=== PATIENT | male | born 1980 | race Caucasian/White ===

== ENCOUNTER 2017-12-24 22:34 | Emergency (ER) | payer SELFPAY ==
[~2017-12-24] VITALS: Ht 185.4 cm; Wt 65.8 kg
--- NOTE | 2017-12-25 00:12 | ED Back Pain ---
General Chief Complaint: Back Problems Stated Complaint: AB PAIN Nursing Triage Note: Pt c/o R flank pain and swelling to bilat groin area x 1 week. Pt reports he has been moving recently and this he may have injured himself. Nursing Sepsis Screen: No Definite Risk Source of Information: Patient, Spouse Exam Limitations: No Limitations History of Present Illness Date Seen by Provider: Dec 25, 2017 Time Seen by Provider: 23:50 Initial Comments Patient just recently moved here from [place] and presents to ER by private conveyance with chief complaint that for the past couple days since moving he's been having some pain in his right groin more than left but both groins have a bulge visible. He is not having any redness, swelling, drainage, dysuria, nausea , fevers, chills or history of abdominal or groin surgeries. Does not ever been told he had a hernia. His pain is worse when he stands up or moves around. He says bulges or more visible when he standing up. Allergies and Home Medications Allergies Coded Allergies: bupropion (Unverified Allergy, Unknown, 12/24/17) Patient Home Medication List Home Medication List Reviewed: Yes Constitutional: No chills, No diaphoresis EENTM: No hearing loss, No eye pain Respiratory: No cough, No short of breath Cardiovascular: No chest pain, No edema Gastrointestinal: see HPI; No constipation, No diarrhea, No nausea, No vomiting Genitourinary: No decreased output, No discharge, No dysuria, No frequency, No hematuria Musculoskeletal: No back pain, No joint pain Skin: No pruritus, No rash Past Ymlitcz-Jncslw-Olzjuo Hx Patient Social History Alcohol Use: Denies Use Recreational Drug Use: Yes Drug of Choice: past hx marijuana Smoking Status: Current Everyday Smoker Type Used: Cigarettes Recent Foreign Travel: No Contact w/Someone Who Travel: No Recent Infectious Disease Expo: No Recent Hopitalizations: No Seasonal Allergies Seasonal Allergies: No Past Medical History Surgeries: Yes Orthopedic Respiratory: No Cardiac: No Neurological: No Genitourinary: No Gastrointestinal: No Musculoskeletal: No Endocrine: No HEENT: No Cancer: No Psychosocial: No Integumentary: No Blood Disorders: No Physical Exam Vital Signs Vital Signs - First Documented 12/24/17 22:41 Temp 97.8 Pulse 56 Resp 18 B/P (MAP) 116/77 (90) Pulse Ox 100 O2 Delivery Room Air Capillary Refill : Less Than 3 Seconds General Appearance: No Apparent Distress, Thin Cardiovascular: Regular Rate, Rhythm, Normal Peripheral Pulses Respiratory: No Accessory Muscle Use, No Respiratory Distress Gastrointestinal: Normal Bowel Sounds, Non Tender, Soft Genital/Rectal: Other (bilateral inguinal canals have palpable hernias that are visible just on standing without Valsalva maneuver as well as palpable in the inguinal canal. Easily reducible.) Extremity: Normal Capillary Refill, No Calf Tenderness Neurologic/Psychiatric: Alert, Oriented x3 Skin: Normal Color, Warm/Dry Progress/Results/Core Measures Results/Orders Vital Signs/I&O 12/24/17 12/25/17 22:41 00:15 Temp 97.8 97.8 Pulse 56 56 Resp 18 18 B/P (MAP) 116/77 (90) 116/77 (90) Pulse Ox 100 100 O2 Delivery Room Air Blood Pressure Mean: 90 Departure Impression Primary Impression: Inguinal hernia bilateral, non-recurrent Qualified Codes: K40.20 - Bilateral inguinal hernia, without obstruction or gangrene, not specified as recurrent Disposition: 01 HOME, SELF-CARE Condition: Stable Departure-Patient Inst. Decision time for Depature: 00:10 Referrals: NO,LOCAL PHYSICIAN (PCP) Primary Care Physician EUSEBIO RAMIRES MD Patient Instructions: Groin Hernia (DC) Add. Discharge Instructions: Don't lift more than 10 pounds until you meet with the surgeon. This morning called the surgeon's office Dr. Ramires and request an appointment for consultation and possible repair of your bilateral inguinal hernias. Use proper body mechanics as demonstrated. All discharge instructions reviewed with patient and/or family. Voiced understanding. Copy Copies To 1: EUSEBIO RAMIRES MD, TITUS J Dec 25, 2017 00:11
[2017-12-25 00:15] VITALS: BP 116/77
== END 2017-12-25 00:15 | disposition home or self-care (01) ==
LOC: ER 22:37
DX: K40.20 Bilateral inguinal hernia, without obstruction or gangrene, not specified as recurrent (principal); F17.210 Nicotine dependence, cigarettes, uncomplicated; Z88.8 Allergy status to other drugs, medicaments and biological substances
CPT/HCPCS: 99281

== ENCOUNTER 2018-08-19 01:17 | Emergency (ER) | payer SELFPAY ==
[~2018-08-19] VITALS: Ht 185.4 cm; Wt 70.3 kg
--- NOTE | 2018-08-19 02:35 | ED EENT ---
History of Present Illness General Chief Complaint: Dental Problems/Pain Stated Complaint: DENTAL PAIN Nursing Triage Note: Pt arrived by private vehicle with significant other. [facility]. Pt stated broken for 1-2 months; from [place] and has been to [facility] several times for issue; pt stated lower/right/posterior. Pt stated he has been taking ibuprofren and oralgel and it is not helping. Pt stated that he thinks there is an infection, sensitivity, headache and whole side of head/face hurts he stated. Source: patient Exam Limitations: no limitations (FAREED EVANS STUDENT) History of Present Illness Date Seen by Provider: Aug 19, 2018 Time Seen by Provider: 02:20 Initial Comments 37 y/o M presented for tooth pain of the back lower molar on the left that has worsened in severity over the past few days. He noted that it has been broken for a few months but he has been controlling the pain with ibuprofen successfully until a few days ago. He has started having worsening sensitivity and pain that radiates up into his head, causing headaches. He has noted some pus in the mornings on a Q-tip when he applies oragel on the molar. He denies fever, chills, sweating. He is having difficulty eating due to pain and sensitivity to drinking cold/hot liquids. Timing/Duration: gradual Severity: severe Location: dental (bottom molar on the left) Prearrival Treatment: over the counter meds (ibuprofen) Associated Symptoms: No cough, No facial pain/swelling, No fever, No malaise, No nasal congestion/drainage; poor fluid intake, poor solids intake; No sinus infection, No sore throat; tooth pain (FAREED EVANS STUDENT) Timing/Duration: gradual, other (several days) Severity: moderate Location: dental (bottom molar on the left) Prearrival Treatment: over the counter meds (ibuprofen) Associated Symptoms: No cough, No drooling, No fever, No sore throat; tooth pain; No voice change (SANDY BAILEY MD) Allergies and Home Medications Allergies Coded Allergies: bupropion (Unverified Allergy, Unknown, 12/24/17) Patient Home Medication List Home Medication List Reviewed: Yes (FAREED EVANS STUDENT) Home Medication List Reviewed: Yes (SANDY BAILEY MD) Review of Systems Review of Systems Constitutional: No chills, No diaphoresis, No fever, No malaise Eyes: Denies Blurred Vision, Denies Pain, Denies Vision Changes Ears: Denies Dizziness, Denies Pain, Denies Tinnitus Nose: denies congestion, denies pain Mouth: denies loose teeth; pain (radiating into jaw and up into head); denies swelling; purulent discharge (on Q-tip in mornings) Throat: denies pain, denies swelling, denies painful swallowing Respiratory: No cough, No phlegm, No short of breath, No wheezing Cardiovascular: No chest pain, No edema, No palpitations Gastrointestinal: No abdominal pain, No diarrhea, No nausea, No vomiting Musculoskeletal: No back pain, No muscle pain, No muscle stiffness Skin: No lesions, No lumps, No rash Neurological: Headache; Denies Numbness, Denies Tremors, Denies Weakness (FAREED DELCID) Constitutional: see HPI Ears: No Symptoms Reported Nose: no symptoms reported Mouth: see HPI, pain (radiating into jaw and up into head); denies swelling Throat: denies neck stiffness, denies hoarse, denies aphonia, denies muffled Respiratory: no symptoms reported; No cough, No short of breath Cardiovascular: no symptoms reported (SANDY BAILEY MD) Past Wilbgzu-Afcohf-Cigoog Hx Past Med/Social Hx: Reviewed Nursing Past Med/Soc Hx (SANDY BAILEY MD) Patient Social History Alcohol Use: Denies Use Recreational Drug Use: No Drug of Choice: past hx marijuana Smoking Status: Current Everyday Smoker Type Used: Cigarettes 2nd Hand Smoke Exposure: No Recent Foreign Travel: No Contact w/Someone Who Travel: No Recent Infectious Disease Expo: No Recent Hopitalizations: No Physical Abuse: No Sexual Abuse: No Mistreated: No Fear: No (FAREED EVANS STUDENT) Seasonal Allergies Seasonal Allergies: No (FAREED EVANS) Past Medical History Surgeries: Yes (left foot bone repair; right hand tendon repair) Orthopedic Respiratory: No Cardiac: No Neurological: No Genitourinary: No Gastrointestinal: No Musculoskeletal: Yes (left foot bone repair; right hand tendon repair) Endocrine: No HEENT: No Cancer: No Psychosocial: No Integumentary: No Blood Disorders: No (NATHANFAREED Lenny STUDENT) Family Medical History Reviewed Nursing Family Hx (FAREED EVANS STUDENT) Reviewed Nursing Family Hx (SANDY BAILEY MD) No Pertinent Family Hx (FAREED EVANS STUDENT) Physical Exam Vital Signs Vital Signs - First Documented 08/19/18 01:34 Temp 97.9 Pulse 56 Resp 18 B/P (MAP) 114/69 (84) Pulse Ox 98 O2 Delivery Room Air (SANDY BAILEY MD) Height, Weight, BMI Height: 6'1.00" Weight: 155lbs. 0oz. 70.474430im; BMI Method:Stated General Appearance: WD/WN, mild distress Eyes: bilateral eye normal inspection, bilateral eye PERRL Ears: bilateral ear auricle normal, bilateral ear canal normal, bilateral ear TM normal Nose: normal inspection; No sinus tenderness Mouth/Throat: pharynx normal, dental tenderness; No foreign body, No mandibular swelling, No maxillary swelling; other (broken posterior molar on the left) Neck: non-tender, full range of motion, supple, normal inspection, lymphadenopathy (R) (NTAHANFAREED Lenny STUDENT) General Appearance: WD/WN, mild distress Mouth/Throat: pharynx normal, dental tenderness (right lower posterior near number 32) Cardiovascular: regular rate, rhythm, no murmur Respiratory: lungs clear, normal breath sounds Neurologic/Psychiatric: alert, oriented x 3 Skin: normal color, warm/dry (SANDY BAILEY MD) Progress/Results/Core Measures Results/Orders My Orders Orders - SANDY BAILEY MD Amoxicillin 1000mg Po (08/19/18 03:04) Hydrocodone/Apap 7.5/325 Tab (Lortab 7. (08/19/18 03:04) (SANDY BAILEY MD) Vital Signs/I&O 08/19/18 01:34 Temp 97.9 Pulse 56 Resp 18 B/P (MAP) 114/69 (84) Pulse Ox 98 O2 Delivery Room Air (SANDY BAILEY MD) Blood Pressure Mean: 84 Progress Progress Note : Progress Note I have seen and evaluated the patient and agree with above except as indicated. Have directed the plan of care. Patient is here with dental tenderness to the area a number 32. Does have moderate dental carry with mild tenderness to the gums without obvious abscess. Amoxicillin 1000 mg by mouth and hydrocodone 7.5/325 one tab by mouth given. Discharged home with return precautions. Patient verbalize understanding instructions and agreement with plan. (SANDY BAILEY MD) Departure Impression Primary Impression: Dental caries Disposition: HOME, SELF-CARE Condition: Stable Departure-Patient Inst. Decision time for Depature: 03:09 (SANDY BAILEY MD) Referrals: [facility] (PCP/Family) Primary Care Physician Patient Instructions: Tooth Decay, Adult (DC), Tooth Abscess (DC) Add. Discharge Instructions: All discharge instructions reviewed with patient and/or family. Voiced understanding. You may take ibuprofen 800 mg every 8 hours as needed for pain. You may take Tylenol/acetaminophen 1000 mg every 8 hours as needed for pain. Follow-up with a dentist CARLA. Take other medications as directed. You should continue to brush her teeth and you may rinse her mouth with salt water 2 or 3 times daily as discussed. Return for worse pain, swelling, breathing or swallowing problems or other concerns as needed. Scripts Amoxicillin (Amoxicillin) 500 Mg Capsule 500 MG PO TID, #30 CAP 0 Refills Prov: SADNY BAILEY MD 08/19/18 Images Mouth/Nose 1 - Caries, Tenderness (SANDY BAILEY MD) FAREED EVANS STUDENT Aug 19, 2018 02:35 SANDY BAILEY MD Aug 19, 2018 03:11
[2018-08-19] MEDS ORDERED: HYDROcodone/APAP 7.5 MG/325 MG (LORTAB, LORCET PLUS) TABLET PO STA (03:04)
[2018-08-19] MEDS ORDERED: AMOXICILLIN 500 MG (POLYMOX) CAP PO STA (03:04)
[2018-08-19] MEDS ORDERED: AMOX500C2 PO (03:11)
[2018-08-19 03:14] VITALS: BP 119/66
== END 2018-08-19 03:14 | disposition home or self-care (01) ==
LOC: EDUNIT# 01:17 → ER 01:21
DX: K02.9 Dental caries, unspecified (principal); F17.210 Nicotine dependence, cigarettes, uncomplicated; Z88.8 Allergy status to other drugs, medicaments and biological substances; Z98.890 Other specified postprocedural states
CPT/HCPCS: 99283

== ENCOUNTER 2019-12-08 20:49 | Emergency (ER) | payer SELFPAY ==
[~2019-12-08] VITALS: Ht 185.4 cm; Wt 74.8 kg
[~2019-12-08 20:49] MED LIST: AMOX500C2 PO
--- OUTSIDE RECORDS SUMMARY | 2019-12-08 20:54 | XMS REPORT | Continuity of Care Document ---
Author Organization Unknown Address Unknown Phone Unavailable Allergies Active Description Code Type Severity Reaction Onset Reported/Identified Relationship to Patient Clinical Status Yes bupropion [id number] Drug Allergy Unknown N/A 12/24/2017 Medications There is no data. Problems Date Dx Coded Attending Type Code Diagnosis Diagnosed By 12/25/2017 KEKE MCPHERSON MD Ot F17.210 NICOTINE DEPENDENCE, CIGARETTES, UNCOMPL 12/25/2017 KEKE MCPHERSON MD Ot K40. 20 BI INGUINAL HERNIA, W/O OBST OR GANGRENE 12/25/2017 KEKE MCPHERSON MD Ot R10. 31 RIGHT LOWER QUADRANT PAIN 12/25/2017 KEKE MCPHERSON MD Ot Z88. 8 ALLERGY STATUS TO OTH DRUG/MEDS/BIOL SUB 12/26/2017 KEKE MCPHERSON MD Ot F17.210 NICOTINE DEPENDENCE, CIGARETTES, UNCOMPL 12/26/2017 KEKE MCPHERSON MD Ot K40. 20 BI INGUINAL HERNIA, W/O OBST OR GANGRENE 12/26/2017 KEKE MCPHERSON MD Ot R10. 31 RIGHT LOWER QUADRANT PAIN 12/26/2017 KEKE MCPHERSON MD Ot Z88. 8 ALLERGY STATUS TO OTH DRUG/MEDS/BIOL SUB 08/21/2018 SANDY BAILEY MD Ot F17.210 NICOTINE DEPENDENCE, CIGARETTES, UNCOMPL 08/21/2018 SANDY BAILEY MD Ot K02.9 DENTAL CARIES, UNSPECIFIED 08/21/2018 SANDY BAILEY MD Ot K08.89 OTHER SPECIFIED DISORDERS OF TEETH AND S 08/21/2018 SANDY BAILEY MD Ot Z88.8 ALLERGY STATUS TO OTH DRUG/MEDS/BIOL SUB 08/21/2018 SANDY BAILEY MD Ot Z98.890 OTHER SPECIFIED POSTPROCEDURAL STATES Procedures There is no data. Results There is no data. Encounters ACCT No. Visit Date/Time Discharge Status Pt. Type Provider Facility Loc./Unit Complaint [id number] 08/19/2018 01:21:00 019 03:14:00 DIS Outpatient LEO RILEY, SANDY Arreola [facility] DENTAL PAIN [id number] 12/24/2017 22:37:00 018 00:15:00 DIS Emergency VIDA RILEY, KEKE Sheppard [facility] AB PAIN
[2019-12-08 21:04] VITALS: BP 123/75
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
[2019-12-08] MEDS ORDERED: RX-HYDROCODONE/APAP 5/325 MG #4 TAB PK PO PRN (21:45)
== END 2019-12-08 21:45 | disposition home or self-care (01) ==
LOC: EDUNIT# 20:49 → ER 20:50
DX: S20.212A Contusion of left front wall of thorax, initial encounter (principal); Z88.8 Allergy status to other drugs, medicaments and biological substances; V19.9XXA Pedal cyclist (driver) (passenger) injured in unspecified traffic accident, initial encounter
CPT/HCPCS: 71101

== ENCOUNTER 2020-07-08 13:09 | Emergency (ER) | payer BC ==
[~2020-07-08] VITALS: Ht 185.5 cm; Wt 72.6 kg
[2020-07-08 13:18] VITALS: BP 132/81
--- NOTE | 2020-07-08 13:34 | ED Upper Extremity ---
General Chief Complaint: Upper Extremity Stated Complaint: R ELBOW PAIN Nursing Triage Note: PT AMB TO TRIAGE WITH COMPLAINT OF RIGHT ELBOW PAIN. STATES SLIPPED ON ICE TWO WEEKS AGO, LANDING ON ELBOW. STATES WHENEVER HE PLACES PRESSURE ON ELBOW, HE FEELS A TEARING PAIN. AFTER BEING PLACED IN ROOM, PT ASKED IF HE COULD CHECK ON HIS FRIEND, WHO ALSO CHECKED INTO ER AT SAME TIME. Nursing Sepsis Screen: No Definite Risk Source: patient Exam Limitations: no limitations History of Present Illness Date Seen by Provider: Jul 08, 2020 Time Seen by Provider: 13:28 Initial Comments This is a well-appearing 39-year-old male who presents to the ER with complaints of right elbow pain 2 weeks. States he fell and slipped on ice in the parking lot at his house and landed directly on his right elbow. He is able to move independently and this does not cause pain, however, whenever he puts pressure on his elbow, it causes significant pain. Sitting up in bed at this time he has no pain. States he is repeatedly asked at work to do things that require him to move his arm and he is concerned this has prolonged healing of his injury. Has taken ibuprofen which is provided mild relief. No medications taken today. Allergies and Home Medications Allergies Coded Allergies: bupropion (Unverified Allergy, Unknown, 12/24/17) Home Medications Amoxicillin 500 Mg Capsule, 500 MG PO TID Prescribed by: SANDY BAILEY on 08/19/181 Patient Home Medication List Home Medication List Reviewed: Yes Review of Systems Constitutional: no symptoms reported EENTM: no symptoms reported Respiratory: no symptoms reported Cardiovascular: no symptoms reported Gastrointestinal: no symptoms reported Genitourinary: no symptoms reported Musculoskeletal: see HPI Skin: no symptoms reported Psychiatric/Neurological: No Symptoms Reported Past Owjztfx-Iebdkq-Tszaso Hx Patient Social History Alcohol Use: Denies Use Recreational Drug Use: No Drug of Choice: past hx marijuana Smoking Status: Current Everyday Smoker Type Used: Cigarettes 2nd Hand Smoke Exposure: No Recent Foreign Travel: No Contact w/Someone Who Travel: No Recent Infectious Disease Expo: No Recent Hopitalizations: No Immunizations Up To Date Tetanus Booster (TDap): Unknown PED Vaccines UTD: Yes Seasonal Allergies Seasonal Allergies: No Past Medical History Surgeries: Yes (left foot bone repair; right hand tendon repair) Orthopedic Respiratory: No Cardiac: No Neurological: No Genitourinary: No Gastrointestinal: No Musculoskeletal: Yes (left foot bone repair; right hand tendon repair) Endocrine: No HEENT: No Cancer: No Psychosocial: No Integumentary: No Blood Disorders: No Family Medical History No Pertinent Family Hx Physical Exam Vital Signs Vital Signs - First Documented 07/08/20 13:18 Temp 36.5 Pulse 85 Resp 20 B/P (MAP) 132/81 (98) Pulse Ox 99 O2 Delivery Room Air Capillary Refill : Less Than 3 Seconds Height, Weight, BMI Height: 6'1.00" Weight: 155lbs. 0oz. [id number]; 21.00 BMI Method:Stated General Appearance: WD/WN, no apparent distress HEENT: PERRL/EOMI, normal ENT inspection Neck: full range of motion, normal inspection Cardiovascular: regular rate, rhythm, no murmur Respiratory: lungs clear, normal breath sounds, no respiratory distress Shoulder: normal inspection, non-tender, no evidence of injury Elbow/Forearm: normal inspection, non-tender (to touch ), no evidence of injury, normal ROM, Right, pain Wrist: Yes normal inspection, Yes non-tender, Yes no evidence of injury Hand: normal inspection, non-tender, no evidence of injury, normal ROM, swelling (, equal full-strength bilaterally) Neurologic/Tendon: normal sensation, normal motor functions, normal tendon functions, responds to pain Neurologic/Psychiatric: no motor/sensory deficits, alert, normal mood/affect, oriented x 3 Skin: normal color, warm/dry Progress/Results/Core Measures Results/Orders My Orders Orders - KIRSTIE PLASCENCIA APRN Elbow, Right, 3 Views (07/08/20 13:28) Vital Signs/I&O Blood Pressure Mean: 98 Progress Progress Note : Progress Note His exam is unremarkable and he likely has a contusion of his right elbow. However, will obtain images due to persistent pain. Throughout history and exam, he repeatedly asked for a work note because his job requires him to move his arm too much. Also, he continually flexed and extended his arm stating "this doesn't hurt, but when I put pressure on it like this (demonstrated getting up from bed by elbow), it hurts really bad". Stated he would like to have a week off work to allow for healing. Discussed that we need to identify the problem first, before we can discuss treatment. Discussed findings of x-ray which shows no acute fractures. Requested he get a work note for today so he didn't have to work this evening. Discussed that no injuries preventing work was seen and he could be provided with a work note that shows he was in the ER this morning. He became upset stating "how my supposed to go to work? They expect me to climb up ladders and stuff". Discussed that he appears to be moving his arm just fine without difficulty and he reports pain only when he puts pressure on his elbow. Became upset stating "you are not listening to me". Discussed discharge plan of care and instructed him to follow-up with his primary care provider if his symptoms are persisting. Diagnostic Imaging Diagonstic Imaging: Xray Plain Films/CT/US/NM/MRI: elbow Comments NAME: ANGEL CLINTON MED REC#: [id number] PT STATUS: DEP ER : 1980 PHYSICIAN: KIRSTIE PLASCENCIA SITE COORDINATOR ADMIT DATE: 07/08/20/ER Signed Date of Exam:07/08/20 ELBOW, RIGHT, 3 VIEWS INDICATION: Fall, complaining of right elbow pain. TIME OF EXAM: 2:01 PM. FINDINGS: Three views of the right elbow were obtained. The alignment is normal. The joint spaces are well-maintained. No fracture, dislocation, or effusion is identified. IMPRESSION: No acute bony abnormality is detected. Dictated by: Dictated on workstation # [id number] Dict: 07/08/20 1422 Trans: 07/08/20 1546 [id number] Interpreted by: JENNIFER CISNEROS MD Electronically signed by: JENNIFER CISNEROS MD 07/08/20 1546 Departure Impression Primary Impression: Contusion of elbow Disposition: 01 HOME, SELF-CARE Condition: Stable/Unchanged Departure-Patient Inst. Decision time for Depature: 10:30 Referrals: [facility] (PCP/Family) Primary Care Physician Patient Instructions: Contusion (DC) Add. Discharge Instructions: Plan: 1. Discharge home. 2. Rest, ice 20 minutes at a time every couple of hours for swelling and pain, use angie wrap over the next 3 days, and keep elevated above your heart as much as possible. T 3. May take Tylenol or Ibuprofen as needed for pain per package directions. Do not take more than directed. 4. Follow up with your primary care provider if symtpoms persist. All discharge instructions reviewed with patient and/or family. Voiced understanding. KIRSTIE PLASCENCIA SITE COORDINATOR Jul 08, 2020 13:34
--- NOTE | 2020-07-08 14:23 | Diagnostic Imaging Report ---
INDICATION: Fall, complaining of right elbow pain. TIME OF EXAM: 2:01 PM. FINDINGS: Three views of the right elbow were obtained. The alignment is normal. The joint spaces are well-maintained. No fracture, dislocation, or effusion is identified. IMPRESSION: No acute bony abnormality is detected. Dictated by: Dictated on workstation # [id number]
== END 2020-07-08 14:43 | disposition home or self-care (01) ==
LOC: EDUNIT# 13:09 → ER 13:11
DX: S50.01XA Contusion of right elbow, initial encounter (principal); F17.210 Nicotine dependence, cigarettes, uncomplicated; Z88.8 Allergy status to other drugs, medicaments and biological substances; W01.0XXA Fall on same level from slipping, tripping and stumbling without subsequent striking against object, initial encounter
CPT/HCPCS: 73080

== ENCOUNTER → 2020-09-29 | Emergency (ER) | payer BC | LOC: EDUNIT# 08:34 → ER 08:36 | DX: R43.0 Anosmia (principal); R50.9 Fever, unspecified ==

== ENCOUNTER 2020-10-10 09:34 | Emergency (ER) | payer OTHER, BC ==
[~2020-10-10] VITALS: Ht 182.8 cm; Wt 75.0 kg
[2020-10-10 10:47] VITALS: BP 116/93
== END 2020-10-10 10:47 | disposition left against medical advice (07) ==
LOC: EDUNIT# 09:34 → ER 09:36
DX: M54.9 Dorsalgia, unspecified (principal)
CPT/HCPCS: 99281

== ENCOUNTER → 2020-10-15 | Outpatient (REF) ==
--- NOTE | 2020-10-15 09:37 | Diagnostic Imaging Report ---
INDICATION: Back pain EXAM: Thoracic spine FINDINGS: AP and lateral views of the thoracic spine show normal vertebral body height and alignment. Disc spaces are normal. IMPRESSION: Negative thoracic spine Dictated by: Dictated on workstation # [id number]
== END ==
LOC: OCC 09:06
PROVIDERS: ATTEND Family Medicine
DX: M54.9 Dorsalgia, unspecified (principal)
CPT/HCPCS: 72072

== ENCOUNTER 2021-03-14 17:17 | Emergency (ER) | payer BC ==
[~2021-03-14] VITALS: Ht 185 cm; Wt 77.0 kg
--- OUTSIDE RECORDS SUMMARY | 2021-03-14 17:23 | XMS REPORT | Clinical Summary ---
Author Author [facility] Organization [facility] Address Unknown Phone Unavailable Care Team Providers Care Cartography Professor Name Role Phone None, Pcp MD PCP Unavailable Source Comments [facility] ([facility]) documents [facility] appear [facility] Allergies Not on File Medications Please verify current medications with patient. Not on file Active Problems Not on file Social History Date Tobacco Use Types Packs/Day Years Used Never Assessed Sex Assigned at Date Recorded Not on file Last Filed Vital Signs Not on file Plan of Treatment Health Maintenance Due Date Last Done Comments COVID-19 Vaccine (1) 1994 Influenza Vaccine (#1) 2021 HPV Vaccine Aged Out No longer eligible based on patient's age to complete this topic Pneumococcal Vaccine: Aged Out No longer eligib le based on patient's age to Pediatrics (0 to 5 Years) complete this topic and At-Risk Patients (6 to 64 Years) Results Not on filefrom Last 3 Months Advance Directives 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
[2021-03-14 17:52] VITALS: BP 127/87
--- NOTE | 2021-03-14 17:59 | ED Integumentary General ---
General Chief Complaint: Skin/Wound Problems Stated Complaint: BRUISING/RASH ON BOTH ARMS Source: patient Exam Limitations: no limitations (BRITANY HIGHTOWER APRN) History of Present Illness Date Seen by Provider: Mar 14, 2021 Time Seen by Provider: 17:54 Initial Comments To ER with a singular bruise about nickel sized to the medial aspect of the right upper arm for a few days with a lump beneath it. Does not recall any injury. He also had a rash to both upper extremities from the elbows to the shoulders but it is gone now. He has no other symptoms. He was concerned he may have a blood clot. He donates blood quite frequently and has never had any issues with low platelets or low hemoglobin. Timing/Duration: just prior to arrival Severity: moderate Associated Symptoms: denies symptoms (BRITANY HIGHTOWER APRN) Allergies and Home Medications Allergies Coded Allergies: bupropion (Unverified Allergy, Unknown, 12/24/17) Patient Home Medication List Home Medication List Reviewed: Yes (BRITANY HIGHTOWER APRN) Amoxicillin (Amoxicillin) 500 Mg Capsule, 500 MG PO TID Prescribed by: SANDY BAILEY on 08/19/18 0311 Review of Systems Review of Systems Constitutional: see HPI EENTM: see HPI Respiratory: no symptoms reported Cardiovascular: no symptoms reported Genitourinary: no symptoms reported Musculoskeletal: no symptoms reported Skin: see HPI Psychiatric/Neurological: No Symptoms Reported Endocrine: No Symptoms Reported (BRITANY HIGHTOWER APRN) Past Btijuio-Urnkgn-Tkyqbw Hx Patient Social History Tobacco Use?: Yes Tobacco type used: Cigarettes Smoking Status: Current Everyday Smoker Use of E-Cig and/or Vaping dev: No Substance use?: No Alcohol Use?: Yes Alcohol Frequency: Rarely Pt feels they are or have been: No (BRITANY HIGHTOWER APRN) Immunizations Up To Date Tetanus Booster (TDap): Unknown PED Vaccines UTD: Yes (BRITANY HIGHTOWER APRN) Seasonal Allergies Seasonal Allergies: No (BRITANY HIGHTOWER APRN) Past Medical History Surgery/Hospitalization HX: PT DENIES ANY PMH Surgeries: Yes (left foot bone repair; right hand tendon repair) Orthopedic Respiratory: No Cardiac: No Neurological: No Genitourinary: No Gastrointestinal: No Musculoskeletal: Yes (left foot bone repair; right hand tendon repair) Endocrine: No HEENT: No Cancer: No Psychosocial: No Integumentary: No Blood Disorders: No (BRITANY HIGHTOWER APRN) Family Medical History No Pertinent Family Hx (BRITANY HIGHTOWER APRN) Physical Exam Vital Signs Vital Signs - First Documented 03/14/21 17:52 Temp 36.8 Pulse 82 Resp 18 B/P (MAP) 127/87 (100) Pulse Ox 96 O2 Delivery Room Air (JOVANY CARROLL MD) Vital Signs Capillary Refill : (BRITANY HIGHTOWER APRN) General Appearance: WD/WN, no apparent distress HEENT: PERRL/EOMI Neck: non-tender, full range of motion Respiratory: no respiratory distress, no accessory muscle use Neurologic/Psychiatric: alert, normal mood/affect, oriented x 3 Skin: normal color, warm/dry Skin Problem Character: other (There is a single bruise about nickel sized to the medial aspect of the right upper arm, small palpable hematoma/nodule (half of a pea size) within the center of this. No surrounding erythema or swelling. He was concerned of DVT though there is absolutely no appearance of this. Nor is there a rash.) (BRITANY HIGHTOWER APRN) Progress/Results/Core Measures Results/Orders Vital Signs/I&O 03/14/21 17:52 Temp 36.8 Pulse 82 Resp 18 B/P (MAP) 127/87 (100) Pulse Ox 96 O2 Delivery Room Air (JOVANY CARROLL MD) Departure Impression Primary Impression: Superficial bruising of arm Additional Impression: small hematoa of arm Disposition: 01 HOME, SELF-CARE Condition: Stable Departure-Patient Inst. Decision time for Depature: 17:58 (BRITANY HIGHTOWER APRN) Referrals: [facility] (PCP/Family) Primary Care Physician Patient Instructions: Taking Care of Bruises Add. Discharge Instructions: 1. Follow-up with your doctor next week. Do not have any concern for blood clot causing this. This is a small hematoma beneath the skin the bruises related to some sort of a broken vessel that you you you simply do not recall. This may have been from minimal injury that you simply do not recall. ATTENDING PHYSICIAN NOTE: I was physically present as attending physician in the emergency department during the care of this patient, but I was not directly involved in the decision making or delivery of care for this patient. (JOVANY CARROLL MD) BRITANY HIGHTOWER APRN Mar 14, 2021 17:59 JOVANY CARROLL MD Mar 16, 2021 14:37
== END 2021-03-14 18:03 | disposition home or self-care (01) ==
LOC: EDUNIT# 17:17 → ER 17:20
DX: S40.021A Contusion of right upper arm, initial encounter (principal); F17.210 Nicotine dependence, cigarettes, uncomplicated; X58.XXXA Exposure to other specified factors, initial encounter
CPT/HCPCS: 99281